=== PATIENT | female | born 1995 | race Caucasian/White ===

== ENCOUNTER 2022-02-07 20:24 | Emergency (ER) | payer OTHER ==
[2022-02-07] MEDS ORDERED: NAPROXEN500 MG PO (23:09)
[2022-02-07] MEDS ORDERED: NORCO 5-325 TA1 EACH PO (23:09)
== END 2022-02-07 23:30 | disposition home or self-care (01) ==
LOC: FER 20:24
DX: M79.672 Pain in left foot (principal); X58.XXXA Exposure to other specified factors, initial encounter; Y93.01 Activity, walking, marching and hiking; Y92.830 Public park as the place of occurrence of the external cause
CPT/HCPCS: 73630; J1885